=== PATIENT | male | born 1965 | race Caucasian/White ===

== ENCOUNTER → 2021-10-09 13:52 | Outpatient (CLI) | payer BC, SELFPAY | PROVIDERS: PCP Family Medicine; Visit Provider Nurse Practitioner | DX: U07.1 COVID-19 (principal) | CPT/HCPCS: C9803; U0003; U0005 ==

== ENCOUNTER 2022-03-05 10:40 | Emergency (ER) | payer BC, SELFPAY ==
[2022-03-05 10:41] VITALS: BP 137/71; PULSE 67; RESP 17; TEMP 36.9; O2SAT 99; BMI 23.4
[2022-03-05 11:48] LABS: Strep Scrn Group A (Rapid) Negative (Negative)
--- NOTE | 2022-03-05 12:03 | HMH.EDUTC ---
[facility] – [place] Disposition Clinical Impression: Viral upper respiratory tract infection with cough Disposition: Home, Self-Care Condition on Discharge: Good Instructions: Cough, DI for Viral Upper Respiratory Infection -- Adult, DI for COVID-19 (Suspected or Confirmed ), Preventing the Spread of Coronavirus Discharge Instructions Additional Instructions: Gargle warm salt water may help with sore throat Over the counter Motrin and/or Tylenol may help with fever and body aches Warm tea with honey and lemon may help with throat irritation Return if needed You was tested for COVID today in the [facility] with Upper Respiratory Panel the results should be available on the [facility] Portal in the next 24-48 hours Prescriptions: Benzonatate [Benzonatate 100mg cap] 100 mg PO Q8HP PRN #30 cap PRN Reason: Cough Transmission Status: Pending to [id number] Referrals: Eris Crowley MD [Primary Care Provider] - As needed Forms: Work/School Release Time of Disposition: 12:09 Medical Decision Making - [facility] Inquiry Pt receiving controlled substance: No [place] was queried for this patient: No Vital Signs: 03/05/22 10:41 Temperature 98.5 F Temperature Source Oral Pulse Rate [Left Radial] 67 Respiratory Rate 17 Blood Pressure [Right Arm] 137/71 Blood Pressure Mean [Right Arm] 93 Blood Pressure Source [Right Arm] Automatic Cuff Blood Pressure Position [Right Arm] Sitting 02 Sat by Pulse Oximetry 99 Oxygen Delivery Method Room Air - Lab Data Lab results reviewed: Yes: I reviewed the patient's lab results. Lab Results 03/05/22 11:20: Group A Strep Rapid Negative Orders (Tests/Meds): ORDERS Category Date Time Status Covid-19 Nasal PCR ([facility]) Routine Lab 03/05/22 11:20 Received Upper Respiratory Panel, PCR Stat Lab 03/05/22 11:00 Ordered Strep Screen Confirmation Stat Micro 03/05/22 11:20 Received [facility] [place] HPI - General Stated complaint: at home covid test pos 03/05, sore throat Time Seen by Provider: 03/05/22 11:00 Mode of Arrival: Ambulatory Source of Information: Patient Limitations: No Limitations Description of Symptoms (Recalled from Triage Doc. by RN): c/o dry cough and sore throat with fatigue for 3 days HEENT Symptoms (Recalled from RN notes): Yes Resp Symptoms (Recalled from RN notes): No Skin Symptoms (Recalled from RN notes): No MS Symptoms (Recalled from RN notes): No Functional Status (Recalled from RN notes): na - History of Present Illness Provider Complaint: Patient states that he has been having sore throat, cough, and nasal congestion for several days Statse that this morning he took an at home COVID test and it was positive States that he was worried that he may have strep throat too and needed to get something for cough - Related Data Home Medications Medication Instructions Recorded Confirmed gabapentin 600 mg tablet 300 mg PO TID 11/01/17 insulin glargine U-300 conc 300 10 unit SUB-Q QDAY 11/01/17 unit/mL (1.5 mL) subcutaneous pen insulin lispro 100 unit/mL 20 unit SUB-Q QAM 11/01/17 subcutaneous cartridge lisinopril 10 mg tablet 10 mg PO QDAY 11/01/17 simvastatin 10 mg tablet 10 mg PO QPM 11/01/17 Previous Rx's Medication Instructions Recorded Albuterol Sulfate [Albuterol 2 puffs IH Q6HP PRN 30 Days #1 each 10/10/21 Sulfate Hfa] Azithromycin [Z-August 250mg Tab*] 250 mg PO UD DOSE PK #6 tab 10/10/21 Benzonatate [Benzonatate 100mg 100 mg PO Q8HP PRN #30 cap 03/05/22 cap] Allergies Allergy/AdvReac Type Severity Reaction Status Date / Time No Known Allergies Allergy Verified 11/01/17 11:11 - Worker's Comp Is this a Worker's Comp case?: No [facility] History - Hepatitis A Screen Attestation statement:: This patient has been screened for Hepatitis A risk factors. I have reviewed the patient's past medical history: Yes Medical History: Reports:: Diabetes Mellitus Type 1 - Social History Smoking Status: Light tobacco smoker
[2022-03-05 12:13] VITALS: BP 137/71; PULSE 67; RESP 17; TEMP 36.9; O2SAT 99
[2022-03-05 15:51] LABS: Adenovirus,PCR Not Detected (NotDetected); Bordetella Pertussis Not Detected (NotDetected); Chlamydophila Pneumoniae, PCR Not Detected (NotDetected); Coronavirus 229E Not Detected (NotDetected); Coronavirus NL63 Not Detected (NotDetected); Coronavirus OC43 Not Detected (NotDetected); Coronovirus HKU1,PCR Not Detected (NotDetected); Human Metapneumovirus Not Detected (NotDetected); Influenza A, PCR Not Detected (NotDetected); Influenza AH1, 2009 Not Detected (NotDetected); Influenza AH1, PCR Not Detected (NotDetected); Influenza AH3,PCR Not Detected (NotDetected); Influenza B, PCR Not Detected (NotDetected); Mycoplasma Pneumoniae, PCR Not Detected (NotDetected); Parainfluenza 1, PCR Not Detected (NotDetected); Parainfluenza 2, PCR Not Detected (NotDetected); Parainfluenza 3, PCR Not Detected (NotDetected); Parainfluenza 4, PCR Not Detected (NotDetected); Respiratory Syncytial Virus Not Detected (NotDetected); Rhinovirus/Enterovirus Not Detected (NotDetected)
== END 2022-03-05 12:14 | disposition home or self-care (01) ==
PROVIDERS: Emergency Provider Nurse Practitioner; PCP Family Medicine
DX: U07.1 COVID-19 (principal); J06.9 Acute upper respiratory infection, unspecified; Z72.0 Tobacco use
CPT/HCPCS: 87430; 87486; 87581; 87632; 87798; 99213; C9803; G0463; U0003; U0005